=== PATIENT | male | born 1990 | race Caucasian/White ===

== ENCOUNTER 2020-04-04 01:40 | Emergency (ER) | payer SELFPAY ==
[2020-04-04 01:43] VITALS: BP 146/98; PULSE 72; RESP 18; TEMP 36; O2SAT 100; BMI 25.9
--- NOTE | 2020-04-04 02:11 | ED.DCSUM_ITS ---
History of Present Illness Chief Complaint: Mental Health Informant: Patient Narrative: Patient brought in by police for mental health evaluation. Patient is currently homeless and states he cannot get a job because he does not have an ID. He voices significant frustration at not being able to get his life turned around. He had a daughter born in October and feels like he needs to get his life turned around to be there to help raise her. Patient reportedly called his sister vanesa to see if she had any other ideas on programs that he could get into to help him get his life turned around. Sister contacted police stating that her brother made statements that he wanted to end it. Patient does admit to having some suicidal thoughts, but states at this time he really this wants to get his life turned around to be there for his daughter. Past Medical History - Allergies and Home Meds Allergies/Adverse Reactions: Allergies No Known Allergies Allergy (Verified 04/04/20 01:41) Primary Care Physician: Juliana Doctor,Out of [NON-STAFF] - Past Medical History: - - Previously diagnosed with bipolar Lives: Homeless Smoking Status: Current every day smoker Review of Systems General: Denies: Chills, Fever Eyes: Denies: Visual changes - bilaterally ENT: Denies: Bilateral ear pain Cardiovascular: Denies: Chest pain Respiratory: Denies: Dyspnea, Cough Gastrointestinal: Denies: Abdominal pain, Nausea, Vomiting, Diarrhea Genitourinary: Denies: Dysuria Musculoskeletal: Denies: Extremity Pain Neurological: Denies: Headache Allergy: Denies: Uticaria Physical Exam Vital Signs/Narrative: Vital Signs Temp Pulse Resp BP Pulse Ox 04/04/20 01:43 96.8 F L 72 18 146/98 H 100 Inital Vital Signs reviewed: Yes General: Well nourished, Well developed Head: Normocephalic ENT: Moist mucous membranes Neck: Supple Cardiovascular: Regular rate, Regular rhythm Respiratory: No distress, CTA bilaterally Abdomen: Soft, Nontender Extremities: - - Healing abrasions to the medial right wrist. 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 Neurological: Alert, Oriented x3, Normal Strength, Normal Sensation Psychological: - - Patient with depressed affect. He is intermittently tearful. He does admit to intermittent suicidal thoughts, but overall has good outlook and desire to turn his life around for his daughter. Diagnostic/Tx/Re-eval Laboratory Results 04/04/20 04/04/20 04/04/20 02:20 02:20 02:20 WBC 8.5 RBC 4.90 Hgb 14.3 Hct 43.8 MCV 89.4 MCH 29.2 MCHC 32.6 RDW Std Deviation 43.5 RDW Coeff of Erlinda 13.3 Plt Count 191 MPV 10.0 Immature Gran % (Auto) 0.200 Neut % (Auto) 55.3 Lymph % (Auto) 34.0 [place] % (Auto) 6.3 Eos % (Auto) 3.5 Baso % (Auto) 0.7 Absolute Neuts (auto) 4.7 Absolute Lymphs (auto) 2.90 Nucleated RBC % 0 Sodium 140 Potassium 3.7 Chloride 111 H Carbon Dioxide 26.0 Anion Gap 3 L BUN 15 Creatinine 0.84 Estim Creat Clear Calc 169.26 Est GFR (MDRD) Af Amer 139 Est GFR (MDRD) Non-Af 115 BUN/Creatinine Ratio 17.8 Glucose 95 Calcium 9.1 Ethyl Alcohol < 3.0 - Medical Decision Making Velvet from the counseling center spoke with the patient on the telephone to evaluate him. At this time patient is denying suicidal ideation and states he is just wanting help in finding some place to live and to get a job. She was able to give him some different options on places to check into. She did asked that the patient call the counseling center at 3 PM to talk to floor worker well service and asked to be transferred to the employment services area. This will be written out on the patient's discharge paperwork. ED Disposition - Plan for ED Patient: Disposition: Home or Assisted Living Diagnosis: Depression Instructions: ED Depression Referrals: Counseling,Center [GROUP OF PHYSICIANS] - Additional Instructions: Call the Counseling Center today at 3pm. The floor worker well service should be able to transfer to employment services in an attempt to help you find a job.
[2020-04-04 02:27] LABS: Absolute Neutrophil Count 4.7 X10^3/uL (2.0-7.7); Basophil# 0.06 X10^3/uL; Basophil% 0.7 % (0-1); Eosinophils% 3.5 % (0-5); Hematocrit 43.8 % (40-54); Hemoglobin 14.3 g/dL (13.0-16.5); Mean Corp Hgb Conc 32.6 g/dL (32-36); Mean Corpuscular Hgb 29.2 pg (27.0-32.0); Mean Corpuscular Volume 89.4 fL (80-94); Monocyte# 0.54 X10^3/uL; Monocyte% 6.3 % (0-10); NRBC Flagged by Analyzer 0 % (0-5); Neutrophil # 4.72 X10^3/uL (2.7-7.7); Neutrophil % 55.3 % (47-70); Platelet Count 191 K/mm3 (150-450); RBC Distribution Width CV 13.3 % (11.6-14.6); RBC Distribution Width SD 43.5 fl (35.1-43.9); White Blood Count 8.5 K/mm3 (4.4-11.0)
[2020-04-04 02:42] LABS: Anion Gap 3 (5-15); BUN 15 mg/dL (7-18); BUN/Creat Ratio 17.8 RATIO (10-20); Calcium,Total 9.1 mg/dL (8.5-10.1); Chloride 111 mmol/L (98-107); Creatinine, Serum 0.84 mg/dL (0.70-1.30); EST Glomerular Filtration Rate 115 mL/min (>60); Est Glom Filt Rate - Afr Amer 139 mL/min (>60); Estimated Creatinine Clearance 169.26 ml/min; Glucose 95 mg/dL (74-106); Potassium 3.7 mmol/L (3.5-5.1); Sodium Level 140 mmol/L (136-145)
[2020-04-04 02:59] LABS: Alcohol, Blood (Medical)-Serum < 3.0 mg/dL
[2020-04-04 03:25] VITALS: RESP 14
--- NOTE | 2020-04-04 04:33 | ED.RN ---
REPORT FAXED TO [facility]IS, CALVIN IS AWARE
[2020-04-04 05:35] VITALS: BP 125/73; PULSE 58; RESP 16; TEMP 36.1; O2SAT 100
[2020-04-04 06:53] VITALS: BP 135/86; PULSE 98; RESP 18; O2SAT 97
== END 2020-04-04 06:54 | disposition home or self-care (01) ==
PROVIDERS: Emergency Provider Emergency Medicine
DX: F32.9 Major depressive disorder, single episode, unspecified (principal); S60.811A Abrasion of right wrist, initial encounter; X58.XXXA Exposure to other specified factors, initial encounter; Y93.9 Activity, unspecified; Y92.9 Unspecified place or not applicable; Z59.0 Homelessness; F17.200 Nicotine dependence, unspecified, uncomplicated
CPT/HCPCS: 36415; 80048; 80320; 85025; 99282; G0480